=== PATIENT | female | born 1955 | race Caucasian/White ===

== ENCOUNTER → 2021-04-02 16:50 | Outpatient (CLI) | payer OTHER, SELFPAY ==
[2021-04-05 11:23] LABS: COVID19 Sendout Positive (Not Detect)
== END ==
PROVIDERS: Visit Provider Nurse Practitioner
DX: U07.1 COVID-19 (principal); Z20.822 Contact with and (suspected) exposure to COVID-19
CPT/HCPCS: 87635

== ENCOUNTER → 2022-09-17 15:34 | Outpatient (CLI) | payer OTHER, SELFPAY ==
[2022-09-17 16:00] LABS: Appearance Urine UA CLEAR; Bilirubin Urine UA NEGATIVE (NEGATIVE); Color Urine UA YELLOW; Glucose Urine UA NEGATIVE (Negative); Ketones Urine UA NEGATIVE (NEGATIVE); Leukocyte Esterase Urine UA 2+ (NEGATIVE); Nitrite Urine UA POSITIVE (Negative); Occult Blood Urine UA 3+ (Negative); Protein Urine UA 1+ (Negative); Specific Gravity Urine UA 1.015 (1.000-1.035); Urobilinogen Urine UA 0.2 E.U./dL (0.2)
[2022-09-17 16:07] LABS: pH Urine UA 5.5 (4.5-8.0)
[2022-09-17 16:08] LABS: Bacteria Urine Moderate (10-30); Culture Indicated Urine Specimen Cultured; RBC Urine 10-30/HPF (0-5/HPF); WBC Urine 10-30/HPF (0-5/HPF)
== END ==
PROVIDERS: Referring Provider Physician Assistant; Visit Provider Physician Assistant
DX: N32.81 Overactive bladder (principal)
CPT/HCPCS: 81001; 87077; 87086; 87186

== ENCOUNTER 2023-02-25 11:14 | Emergency (ER) | payer OTHER, MEDICARE, SELFPAY ==
[2023-02-25 11:20] VITALS: BP 150/67; PULSE 98; RESP 18; TEMP 36.8; O2SAT 97; BMI 41.9
--- NOTE | 2023-02-25 11:36 | DI.CT.S_ITS ---
PROCEDURE: CT KIDNEY URETER BLADDER (KUB) INDICATIONS: Left flank pain TECHNIQUE: Axial sections were acquired from the lung bases to the pubic symphysis. Coronal and sagittal reformats were performed. For radiation dose reduction, the following was used: automated exposure control, adjustment of mA and/or kV according to patient size. COMPARISON: None. FINDINGS: Lower thorax: The lung bases are clear. Heart size normal. No hiatal hernia. Liver: Normal in size and attenuation. No contour deformity present. Biliary system: Cholecystectomy. No intra or extrahepatic bile duct dilation. Pancreas: Unremarkable without mass or inflammation evident. Spleen: Normal in size and density. Adrenals: Normal morphology and density. Reproductive system: Unremarkable as visualized. Urinary system: Large left-sided staghorn calculus without evidence of hydronephrosis bilaterally. Gastrointestinal system: The bowel is unremarkable without evidence of bowel obstruction or inflammation. The stomach appears unremarkable. Multiple diverticula arise from the sigmoid colon without evidence of diverticulitis. Appendix: No findings to suggest acute appendicitis. Peritoneal spaces: No mesenteric or retroperitoneal adenopathy. No free air. No free fluid. Vasculature: The IVC, aorta and iliac vasculature are unremarkable. Abdominal wall: Abdominal wall intact without evidence of ventral or inguinal hernias. Musculoskeletal: Normal bone mineralization. Degenerative disc disease and arthropathy noted in lower lumbar spine. Severe central stenosis L4-5 No acute fractures. IMPRESSION: 1. No acute CT findings in the abdomen and pelvis. 2. Large left renal nonobstructive staghorn calculus. No evidence of hydronephrosis bilaterally. Approved by: Sergo Orellana M.D. on 02/25/2023 at 12:01
--- NOTE | 2023-02-25 11:49 | ED.GENADULT ---
HPI - General Adult General Chief complaint: Urogenital-Female Stated complaint: thinks she has kidney stone Time Seen by Provider: 02/25/23 11:36 Source: patient Mode of arrival: Ambulatory Limitations: no limitations History of Present Illness HPI narrative: 67-year-old female. Does have a history of kidney stones. She has required interventions in the past because of the stones. She was sent in the emergency department for a CT scan by her urologist. She was at her urologist's office this morning. This was a scheduled visit. She was diagnosed with a urinary tract infection. Has been prescribed antibiotics but does not know what they were and has not pick them up because she came right to the ER. She was having bilateral back discomfort but left greater than right. States it does feel like prior history of stone. No fevers. Related Data Home Medications Medication Instructions Recorded Confirmed acetaminophen 500 mg tablet 500 mg PO Q6H PRN 04/02/21 04/02/21 (Tylenol Extra Strength) bupropion HCl 300 mg 24 hr tablet, 300 mg PO QAM 04/02/21 04/02/21 extended release cyclobenzaprine 10 mg tablet 10 mg PO BEDTIME 04/02/21 04/02/21 enalopril-hydrochlorothiazide PO 04/02/21 fexofenadine 180 mg tablet 180 mg PO DAILY 04/02/21 04/02/21 (Monica Allergy) fluticasone propionate 50 1 spray intranasal DAILY 04/02/21 04/02/21 mcg/actuation nasal spray,suspension gabapentin 600 mg tablet 600 mg PO DAILY 04/02/21 04/02/21 hydrocodone 5 mg-acetaminophen 325 1 tab PO BID PRN 04/02/21 04/02/21 mg tablet meloxicam 7.5 mg tablet 7.5 mg PO DAILY 04/02/21 04/02/21 montelukast 10 mg tablet 10 mg PO DAILY 04/02/21 04/02/21 potassium chloride 10 mEq 10 meq PO DAILY 04/02/21 04/02/21 capsule,extended release rosuvastatin 5 mg tablet 5 mg PO DAILY 04/02/21 04/02/21 tizanidine 4 mg capsule 4 mg PO BEDTIME 04/02/21 04/02/21 vilazodone 10 mg tablet (Viibryd) 10 mg PO DAILY 04/02/21 04/02/21 Previous Rx's Medication Instructions Recorded duloxetine 60 mg capsule,delayed 60 mg PO DAILY #5 caps 04/02/21 release montelukast 10 mg tablet 10 mg PO DAILY asthma #5 tabs 04/02/21 Allergies Allergy/AdvReac Type Severity Reaction Status Date / Time ciprofloxacin Allergy Intermediate Hives Verified 02/25/23 11:28 codeine Allergy Intermediate Nausea Verified 04/02/21 16:27 Sulfa (Sulfonamide Allergy Intermediate Swelling Verified 04/02/21 16:27 Antibiotics) of the Eye Review of Systems Constitutional Constitutional: Reports system reviewed and no additional complaints, except as documented Gastrointestinal Gastrointestinal: Reports system reviewed and no additional complaints, except as documented Genitourinary Genitourinary: Reports system reviewed and no additional complaints, except as documented Musculoskeletal Musculoskeletal: Reports system reviewed and no additional complaints, except as documented Integumentary/Breasts Skin/Breast: Reports system reviewed and no additional complaints, except as documented Hematologic/Lymphatic On Anticoagulants: No Patient History Social History Smoking Status: Never smoker Smoking Status: Never smoker alcohol intake frequency: holidays/special occasions only Substance Use Type: does not use Exam Initial Vital Signs Initial Vital Signs: Vital Signs Temperature 98.2 F 02/25/23 11:20 Pulse Rate 98 H 02/25/23 11:20 Respiratory Rate 18 02/25/23 11:20 Blood Pressure 150/67 H 02/25/23 11:20 Pulse Oximetry 97 02/25/23 11:20 Oxygen Delivery Method Room Air 02/25/23 11:20 HENNM Head: normal to inspection and normocephalic Resp Effort & Inspection: normal respiratory effort Cardio Rate: regular rate GI Inspection: normal to inspection and non-distended Skin General: no rashes or lesions noted Neuro General: patient alert, patient awake, patient oriented x3 and moves all extremities Extrem General: normal to inspection and capillary refill normal Course Orders Ordered: ED Orders 02/25/23 11:36 CT kidney ureter bladder (KUB) Stat 02/25/23 11:37 Urine Culture Stat Urine Microscopic Stat Ondansetron HCl (Ondansetron 4 Mg Odt) 4 mg SL NOW PRN PRN Reason: Nausea And Vomiting Ondansetron HCl (Ondansetron 4 Mg/2 Ml Inj) 4 mg IV NOW PRN PRN Reason: Nausea And Vomiting Vital Signs Vital signs: Vital Signs - 8 hr 02/25/23 11:20 Temperature 98.2 F Pulse Rate 98 H Respiratory Rate 18 Blood Pressure 150/67 H Pulse Oximetry 97 Oxygen Delivery Method Room Air Medical Decision Making Lab Data Lab results reviewed: Yes I reviewed the patient's lab results. Labs: Lab Results 02/25/23 Range/Units 11:37 Urine RBC 10-30/hpf H (0-5/HPF) Urine WBC 30-100/hpf H (0-5/HPF) Ur Squamous Epith Cells 5-10 /hpf H (0-5/HPF) Urine Bacteria Moderate (10-30) H (None) Ur Culture Indicated? Specimen cultured Urine Dip Bedside Urine Glucose Negative Bedside Urine Bilirubin - Negative Bedside Urine Ketone - Negative Urine Specific [place] 1.020 Bedside Urine Occult Blood +++ Bedside Urine pH 5.5 Bedside Urine Protein +/- 15 Bedside Urine Urobilinogen - Negative Bedside Urine Nitrite + Positive Bedside Urine Leukocytes ++ 125 Esterase Point of care testing: Urine Dip Bedside Urine Glucose Negative Bedside Urine Bilirubin - Negative Bedside Urine Ketone - Negative Urine Specific [place] 1.020 Bedside Urine Occult Blood +++ Bedside Urine pH 5.5 Bedside Urine Protein +/- 15 Bedside Urine Urobilinogen - Negative Bedside Urine Nitrite + Positive Bedside Urine Leukocytes ++ [address] scan - abdomen/pelvis: Radiologist's Impression: PROCEDURE:? CT KIDNEY URETER BLADDER (KUB) ? INDICATIONS:? Left flank pain ? TECHNIQUE:? Axial sections were acquired from the lung bases to the pubic symphysis.? Coronal and sagittal reformats were performed.? For radiation dose reduction, the following was used: ?automated exposure control, adjustment of mA and/or kV according to patient size.? ? COMPARISON:? None. ? FINDINGS: ? Lower thorax: The lung bases are clear.? Heart size normal.? No hiatal hernia. ? Liver:? Normal in size and attenuation. No contour deformity present. ? Biliary system:? Cholecystectomy.? No intra or extrahepatic bile duct dilation. ? Pancreas:? Unremarkable without mass or inflammation evident. ? Spleen:? Normal in size and density. ? Adrenals:? Normal morphology and density. ? Reproductive system:? Unremarkable as visualized. ? Urinary system:? Large left-sided staghorn calculus without evidence of hydronephrosis bilaterally. ? Gastrointestinal system:? The bowel is unremarkable without evidence of bowel obstruction or inflammation. The stomach appears unremarkable.? Multiple diverticula arise from the sigmoid colon without evidence of diverticulitis. ? ? Appendix:? No findings to suggest acute appendicitis. ? Peritoneal spaces:? No mesenteric or retroperitoneal adenopathy.? No free air.? No free fluid.? ? Vasculature:? The IVC, aorta and iliac vasculature are unremarkable. ? Abdominal wall:? Abdominal wall intact without evidence of ventral or inguinal hernias. ? Musculoskeletal:? Normal bone mineralization.? Degenerative disc disease and arthropathy noted in lower lumbar spine.? Severe central stenosis L4-5? No acute fractures.? ? IMPRESSION: ? 1. No acute CT findings in the abdomen and pelvis.? ? 2. Large left renal nonobstructive staghorn calculus.? No evidence of hydronephrosis bilaterally.? MDM Narrative Medical decision making narrative: Patient does have a urinary tract infection but this is known. A prescription for antibiotics as already been sent to a pharmacy by her urologist. CT scan today does show a left-sided kidney stone but no ureteral nor bladder stones. I did discuss this with her. No indication for emergent urologic consultation. We will have her take the antibiotics for her infection and contact her urologist for follow-up. Was given return precautions Discharge Plan Departure Patient Disposition: Home Clinical Impression: Urinary tract infection, Kidney stone on left side Instructions: DI for Urinary Tract Infection (UTI) Activity Restrictions/Additional Instructions: Continue to take all of your medications as directed. It is also important that you start the antibiotic that was prescribed by urologist earlier today. Return to the emergency department for new symptoms. Prescriptions: No Action gabapentin 600 mg tablet 600 mg PO DAILY hydrocodone-acetaminophen 5-325 mg tablet 1 tab PO BID PRN tizanidine 4 mg capsule 4 mg PO BEDTIME enalopril-hydrochlorothiazide PO potassium chloride 10 mEq capsule, extended release 10 meq PO DAILY meloxicam 7.5 mg tablet 7.5 mg PO DAILY bupropion HCl 300 mg tablet extended release 24 hr 300 mg PO QAM rosuvastatin 5 mg tablet 5 mg PO DAILY montelukast 10 mg tablet 10 mg PO DAILY cyclobenzaprine 10 mg tablet 10 mg PO BEDTIME Viibryd 10 mg tablet 10 mg PO DAILY Rx Instructions: must administer with a meal/food fluticasone propionate 50 mcg/actuation spray,suspension 1 spray intranasal DAILY Rx Instructions: administer into each nostril acetaminophen [Tylenol Extra Strength] 500 mg tablet 500 mg PO Q6H PRN fexofenadine [Monica Allergy] 180 mg tablet 180 mg PO DAILY montelukast 10 mg tablet 10 mg PO DAILY Qty: 5 0RF duloxetine 60 mg capsule,delayed release(DR/EC) 60 mg PO DAILY Qty: 5 0RF Referrals: Vida Maki PA-C [Primary Care Provider] - Balaji Torres MD [Physician] - Stand Alone Forms: Patient Portal/API
[2023-02-25 12:03] LABS: Bacteria Urine Moderate (10-30); Culture Indicated Urine Specimen Cultured; RBC Urine 10-30/HPF (0-5/HPF); Squamous Epithelial Cell Urine 5-10 /HPF (0-5/HPF); WBC Urine 30-100/HPF (0-5/HPF)
--- NOTE | 2023-02-25 12:22 | PC.NURSE ---
Pt c/o bilateral lumbar pain with nausea. Chills yesterday. Denies abdominal pain or urinary symptoms. Reports hx kidney stones.
[2023-02-25 13:29] VITALS: BP 137/61; PULSE 90; RESP 14; O2SAT 98
== END 2023-02-25 13:30 | disposition home or self-care (01) ==
PROVIDERS: Emergency Provider Emergency Medicine; PCP Student in an Organized Health Care Education/Training Program
DX: N39.0 Urinary tract infection, site not specified (principal); N20.0 Calculus of kidney; Z79.899 Other long term (current) drug therapy
CPT/HCPCS: 74176; 81003; 81015; 87077; 87086; 87186; 99282; 99284

== ENCOUNTER → 2023-04-04 12:49 | Outpatient (CLI) | payer OTHER, MEDICARE, SELFPAY ==
--- NOTE | 2023-04-04 | DI.MG.S_ITS ---
BILATERAL DIGITAL SCREENING MAMMOGRAM 3D/2D WITH CAD: 04/04/2023 CLINICAL: Routine screening. Comparison is made to exams dated: 08/18/2021 mammogram and 04/05/2017 mammogram - outside location. There are scattered areas of fibroglandular density in both breasts (category b / 25%-50% glandular tissue). Current study was also evaluated with a Computer Aided Detection (CAD) system. There are benign calcifications in both breasts. No significant masses, calcifications, or other findings are seen in either breast. There has been no significant interval change. IMPRESSION: BENIGN There is no mammographic evidence of malignancy. A 1 year screening mammogram is recommended. Based on the Tyrer Cuzick model (a risk assessment model) the patient's lifetime risk is 8.2% and her 10 year risk is 4.0%. According to the ACR, ACS, and NCCN guidelines, an annual breast MRI exam along with mammogram is recommended if the patient's lifetime risk is 20% or greater. This exam was interpreted at Station ID: [id number]. NOTE: For mammograms, a report in lay terms will be sent to the patient. Approximately 15% of breast malignancies will not be visualized mammographically. In the management of a palpable breast mass, a negative mammogram must not discourage biopsy of a clinically suspicious lesion. Electronically Signed By: Samir ricks/adam:04/05/2023 16:23:01 letter sent: Normal Exam ACR BI-RADS Category 2: Benign Finding(s) 3342F
--- NOTE | 2023-04-04 | DI.RAD.S_ITS ---
Bone Density Report Name: JENNIFER FELIPE Age: 67 Sex: Female Ethnicity: White Date of : 1955 Indication: postmenopausal; screening for osteoporosis; Referring Provider: JUAN ANTONIO HERMAN Study: Bone densitometry was performed. Exam Date: April 04, 2023 Accession number: [id number] Bone Density: Region BMD T-score Z-score Classification AP Spine(L2, L3, L4) 1.335 2.3 4.2 Normal Femoral Neck (Left) 0.736 -1.0 0.5 Normal Total Hip (Left) 0.967 0.2 1.5 Normal Femoral Neck (Right) 0.785 -0.6 1.0 Normal Total Hip (Right) 0.951 0.1 1.3 Normal Total Hip Mean 0.959 0.2 1.4 Normal World Health Organization criteria for BMD impression classify patients as: Normal (T-score at or above -1.0), Osteopenia (T-score between -1.0 and -2.5), or Osteoporosis (T-score at or below -2.5). 10-year Fracture Risk: FRAX not reported because: All T-scores for Spine Total, Hip Total, Femoral Neck at or above -1.0 Impression: The patient has normal bone mass. Discussion: BONE DENSITY IS ABOVE THE MINIMUM DESIRABLE LEVEL AT ALL SKELETAL SITES TESTED. This patient's bone mineral density is above the minimum desirable level (T-score -1.0 or better) at all sites measured. The patient should follow a healthful lifestyle (good nutrition with adequate calcium and vitamin D, and appropriate weight-bearing exercise). Follow-Up: Consider repeating this study in 5 years or sooner if there is some new clinical indication. Reported by: ALISSA CORDOVA M.D. on 04/04/2023 1:28:00 PM.
--- NOTE | 2023-04-04 12:52 | DI.RAD.S_ITS ---
PROCEDURE: XR KUB INDICATIONS: Left kidney stone TECHNIQUE: One view of the abdomen acquired. COMPARISON: [facility], CT, CT KIDNEY URETER BLADDER (KUB), 02/25/2023, 11:49. FINDINGS: Surgical changes and devices: Right upper quadrant surgical clips. Bowel: Bowel gas pattern is normal. Soft tissues: No definite renal calcifications are seen. Rounded hyperdensity in the pelvis measuring 12 mm. Visualized solid organ contours appear normal in size. Bones: No suspicious bony lesions. Degenerative changes of the spine. IMPRESSION: No definite renal stones are seen. Rounded hyperdensity within the pelvis measuring 12 mm, bladder stone is not excluded. Dictated by: Tereso Elliott M.D. on 04/04/2023 at 15:29 Approved by: Tereso Elliott M.D. on 04/04/2023 at 15:31
== END ==
PROVIDERS: PCP Student in an Organized Health Care Education/Training Program; Referring Provider Student in an Organized Health Care Education/Training Program; Visit Provider Student in an Organized Health Care Education/Training Program
DX: Z12.31 Encounter for screening mammogram for malignant neoplasm of breast (principal); N95.9 Unspecified menopausal and perimenopausal disorder; N20.0 Calculus of kidney
CPT/HCPCS: 74018; 77063; 77067; 77080

== ENCOUNTER → 2023-04-05 16:24 | Outpatient (CLI) | payer OTHER, MEDICARE, SELFPAY | PROVIDERS: PCP Student in an Organized Health Care Education/Training Program; Visit Provider Urology | DX: N32.81 Overactive bladder (principal); N20.0 Calculus of kidney; N39.0 Urinary tract infection, site not specified; N39.41 Urge incontinence; R31.29 Other microscopic hematuria; Z92.29 Personal history of other drug therapy | CPT/HCPCS: 81002; 87077; 87086; 87186 ==

== ENCOUNTER → 2023-05-12 09:10 | Outpatient (CLI) | payer OTHER, MEDICARE, SELFPAY ==
--- NOTE | 2023-05-12 | DI.US.S_ITS ---
PROCEDURE: US ABD AORTA ANEURYSM SCREEN INDICATIONS: SCREENING TECHNIQUE: Real-time scanning was performed of the aorta and proximal common iliac arteries, with image documentation. COMPARISON: None. FINDINGS: Aorta: Abdominal aorta is normal in caliber throughout its length. The proximal aorta measures 2.3 cm. The mid aorta measures 2.2 cm. The distal aorta measures 2.0 cm. Iliacs: Proximal common iliac arteries are normal in caliber. IMPRESSION: No abdominal aortic aneurysm. Dictated by: Toni Sarmiento M.D. on 05/12/2023 at 11:42 Approved by: Toni Sarmiento M.D. on 05/12/2023 at 11:43
== END ==
PROVIDERS: PCP Student in an Organized Health Care Education/Training Program; Referring Provider Student in an Organized Health Care Education/Training Program; Visit Provider Student in an Organized Health Care Education/Training Program
DX: Z13.6 Encounter for screening for cardiovascular disorders (principal)
CPT/HCPCS: 76706

== ENCOUNTER → 2023-06-15 16:15 | Outpatient (CLI) | payer OTHER, MEDICARE, SELFPAY ==
[2023-06-15 17:29] LABS: Appearance Urine UA CLOUDY; Bilirubin Urine UA NEGATIVE (NEGATIVE); Color Urine UA YELLOW; Glucose Urine UA NEGATIVE (Negative); Ketones Urine UA TRACE (NEGATIVE); Leukocyte Esterase Urine UA 1+ (NEGATIVE); Nitrite Urine UA POSITIVE (Negative); Occult Blood Urine UA TRACE-INTACT (Negative); Protein Urine UA TRACE (Negative); Specific Gravity Urine UA 1.025 (1.000-1.035); Urobilinogen Urine UA 0.2 E.U./dL (0.2)
[2023-06-15 17:41] LABS: pH Urine UA 5.5 (4.5-8.0)
[2023-06-15 17:42] LABS: Bacteria Urine Many (>30); RBC Urine 1-5/HPF (0-5/HPF); WBC Urine 10-30/HPF (0-5/HPF)
[2023-06-15 17:43] LABS: Culture Indicated Urine Specimen Cultured; Squamous Epithelial Cell Urine 1-5 /HPF (0-5/HPF)
== END ==
PROVIDERS: PCP Student in an Organized Health Care Education/Training Program; Referring Provider Physician Assistant Surgical; Visit Provider Physician Assistant Surgical
DX: N20.0 Calculus of kidney (principal)
CPT/HCPCS: 81001; 87077; 87086; 87186

== ENCOUNTER → 2023-07-14 10:18 | Outpatient (CLI) | payer OTHER, MEDICARE, SELFPAY ==
--- NOTE | 2023-07-14 10:21 | DI.RAD.S_ITS ---
PROCEDURE: XR KUB INDICATIONS: Follow-up kidney stone TECHNIQUE: One view of the abdomen acquired. COMPARISON: [facility], CT, CT KIDNEY URETER BLADDER (KUB), 02/25/2023, 11:49. [facility], CR, XR KUB, 04/04/2023, 12:54. FINDINGS: Surgical changes and devices: There is a left-sided ureteral stent. Bowel: Bowel gas pattern is normal. Soft tissues: There is a 12 x 7 mm radiodensity in the area of the left proximal ureter, likely a ureteral stone. Visualized solid organ contours appear normal in size. Bones: No suspicious bony lesions. IMPRESSION: 1. Left ureter stent. Suspect a 12 x 7 mm ureteral stone. Dictated by: Amanda Cummings M.D. on 07/15/2023 at 16:07 Approved by: Amanda Cummings M.D. on 07/15/2023 at 16:08
== END ==
LOC: RAD 10:20
PROVIDERS: PCP Student in an Organized Health Care Education/Training Program; Referring Provider Urology; Visit Provider Urology
DX: N20.0 Calculus of kidney (principal); Z87.442 Personal history of urinary calculi; Z96.0 Presence of urogenital implants
CPT/HCPCS: 74018

== ENCOUNTER → 2023-07-15 11:02 | Outpatient (CLI) | payer OTHER, MEDICARE, SELFPAY | PROVIDERS: PCP Student in an Organized Health Care Education/Training Program; Visit Provider Urology | DX: N39.0 Urinary tract infection, site not specified (principal); N20.0 Calculus of kidney; R31.29 Other microscopic hematuria; N39.41 Urge incontinence; N32.81 Overactive bladder; Z96.0 Presence of urogenital implants; Z92.29 Personal history of other drug therapy | CPT/HCPCS: 81002; 87086 ==